=== PATIENT | female | born 1960 | race Caucasian/White ===

== ENCOUNTER 2018-08-05 15:11 | Emergency (ER) | END 2018-08-05 20:35 | disposition home or self-care (01) ==

== ENCOUNTER 2018-09-25 07:01 | Day surgery (SDC) | END 2018-09-25 10:26 | disposition home or self-care (01) ==

== ENCOUNTER → 2019-07-16 | Outpatient (CLI) | payer BC ==
[~2019-07-16] MED LIST: LISD30CA5 PO; LORA10TA3 PO; MONT10TA24 PO
== END | disposition home or self-care (01) ==
LOC: LAB 08:35
PROVIDERS: ATTEND Internal Medicine Gastroenterology
DX: K52.9 Noninfective gastroenteritis and colitis, unspecified (principal)
CPT/HCPCS: 87177; 87205